=== PATIENT | male | born 1960 | race African-American/Black ===

== ENCOUNTER 2022-12-02 13:50 | Emergency (ER) | payer MEDICAID ==
[~2022-12-02] VITALS: Ht 172.7 cm; Wt 75.0 kg
[2022-12-02 13:54] VITALS: BP 162/101
[2022-12-02] MEDS ORDERED: AMOX1TAB16 MT (15:16)
== END 2022-12-02 15:48 | disposition home or self-care (01) ==
LOC: ER 14:50
DX: L03.113 Cellulitis of right upper limb (principal); I10 Essential (primary) hypertension
CPT/HCPCS: 99283